=== PATIENT | female | born 1975 | race African-American/Black ===

== ENCOUNTER 2016-07-13 16:18 | Emergency (ER) | payer MEDICAID, OTHER ==
[~2016-07-13] VITALS: Ht 170.2 cm; Wt 111.6 kg
[~2016-07-13 16:18] MED LIST: HYDRO50 PO; IBUP400 PO; RANI150 PO
[2016-07-13 16:25] VITALS: BP 141/93; PULSE 91; RESP 16; TEMP 98.3; O2SAT 97
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
[2016-07-13] MEDS ORDERED: NAPROXEN 500 MG TAB PO ONE (17:00)
[2016-07-13] MEDS ORDERED: traMADol HCL 50 MG TAB PO ONE (17:00)
[2016-07-13] MEDS ORDERED: METHOCARBAMOL 500 MG TAB PO ONE (17:00)
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
[2016-07-13] MEDS ORDERED: NAPR500 PO (18:21)
[2016-07-13] MEDS ORDERED: ROBA500T PO (18:21)
[2016-07-13] MEDS ORDERED: TRAM50TA PO (18:21)
== END 2016-07-13 18:30 | disposition home or self-care (01) ==
LOC: PHEFT 16:18
DX: S39.012A Strain of muscle, fascia and tendon of lower back, initial encounter (principal); S60.222A Contusion of left hand, initial encounter; S80.01XA Contusion of right knee, initial encounter; R07.89 Other chest pain; V43.52XA Car driver injured in collision with other type car in traffic accident, initial encounter; Y93.89 Activity, other specified; Y92.414 Local residential or business street as the place of occurrence of the external cause; Y99.9 Unspecified external cause status
CPT/HCPCS: 71010; 72100; 73130; 73564; 99284